=== PATIENT | female | born 1995 | race African-American/Black ===

== ENCOUNTER 2017-12-25 11:14 | Emergency (ER) | payer BC ==
[~2017-12-25] VITALS: Ht 162.6 cm; Wt 71.7 kg
[2017-12-25 13:00] LABS: HEMATOCRIT 31.4 % (36.0-46.0); MCH 31.8 PG (29.0-34.0); MCV 90.8 FL (83-99); PLATELET COUNT 215 K/uL (156-360); RBC DIS.WIDTH-SD 40.2 % (39-53); RED BLOOD COUNT 3.46 M/uL (3.80-5.20); WHITE BLOOD COUNT 10.5 K/uL (4.1-10.2)
[2017-12-25 13:02] LABS: APPEARANCE SL.HAZY ((CLEAR)); BILIRUBIN NEGATIVE; BLOOD NEGATIVE; COLOR YELLOW ((YELLOW)); GLUCOSE (STRIP) NEGATIVE; KETONES 5; LEUKOCYTES NEGATIVE; NITRITE NEGATIVE; PROTEIN (STRIP) NEGATIVE; SPECIFIC GRAVITY 1.026 (1.000-1.030); UROBILINOGEN 0.2 MG/DL (0.2-1.0)
[2017-12-25 13:09] LABS: BACTERIA RARE /HPF; EPITHELIAL CELLS 1+ /HPF; MUCUS 1+ /LPF; RED BLOOD CELLS 0-5 /HPF (0-5); UCUL ADDED? NO; WHITE BLOOD CELLS 0-5 /HPF (0-5)
[2017-12-25 13:55] LABS: QUANTITATIVE HCG 39665.6 MIU/ML
[2017-12-25 14:02] LABS: CHLORIDE 107 mEq/L (99-109); POTASSIUM 3.5 mEq/L (3.7-5.4); SODIUM 134 mEq/L (136-147)
[2017-12-25 14:04] LABS: GLUCOSE 80 mg/dL (70-99)
[2017-12-25 14:08] LABS: CREATININE 0.8 mg/dL (0.6-1.3); GFR ESTIMATE (CALCULATED) > 59 mL/min/
[2017-12-25 14:09] LABS: UREA NITROGEN (BUN) 8 mg/dL (9-23)
[2017-12-25] MEDS ORDERED: PRENATAL COMPL1 EACH PO (14:55)
[2017-12-25] MEDS ORDERED: ZOFRAN4 MG PO (14:55)
[2017-12-25 15:58] VITALS: BP 112/67
== END 2017-12-25 15:59 | disposition home or self-care (01) ==
LOC: EME 11:14
PROVIDERS: Physician Assistant
DX: O43.891 Other placental disorders, first trimester (principal); O20.8 Other hemorrhage in early pregnancy; R10.2 Pelvic and perineal pain; Z3A.01 Less than 8 weeks gestation of pregnancy; Z87.891 Personal history of nicotine dependence
CPT/HCPCS: 76801; 80048; 81003; 84702; 85027; 99281; 99283

== ENCOUNTER 2018-05-03 10:23 | Emergency (ER) | payer BC, OTHER ==
[~2018-05-03] VITALS: Ht 160 cm; Wt 82.3 kg
[~2018-05-03 10:23] MED LIST: PRENATAL COMPL1 EACH PO; ZOFRAN4 MG PO
[2018-05-03 13:05] LABS: SOURCE SWAB
[2018-05-03] MEDS ORDERED: GYNE-LOTRIMIN-745 GM VG (13:35)
[2018-05-03 13:55] VITALS: BP 104/67
[2018-05-03 19:51] LABS: CANDIDA DNA PROBE NEGATIVE; GARDNERELLA DNA PROBE POSITIVE; TRICHOMONAS DNA PROBE NEGATIVE
== END 2018-05-03 13:55 | disposition home or self-care (01) ==
LOC: EME 10:23
PROVIDERS: Physician Assistant
DX: O98.812 Other maternal infectious and parasitic diseases complicating pregnancy, second trimester (principal); B37.3 Candidiasis of vulva and vagina; Z20.2 Contact with and (suspected) exposure to infections with a predominantly sexual mode of transmission; Z3A.24 24 weeks gestation of pregnancy
CPT/HCPCS: 87210; 87480; 87491; 87510; 87591; 87660; 99281; 99284; J0696